=== PATIENT | female | born 1980 | race Caucasian/White ===

== ENCOUNTER 2017-12-19 09:33 | Emergency (ER) | payer BC ==
[2017-12-19] MEDS ORDERED: Acetaminophen/Codeine 30-300mg Tablet ONE (09:53)
[2017-12-19] MEDS ORDERED: predniSONE 20 MG TAB ONE (09:54)
== END 2017-12-19 10:10 | disposition home or self-care (01) ==
LOC: SCSER 09:33
DX: M54.42 Lumbago with sciatica, left side (principal)
CPT/HCPCS: 99283; J7506

== ENCOUNTER 2022-01-20 15:27 | Outpatient (CLI) | payer BC | END 2022-01-20 15:28 | disposition home or self-care (01) | LOC: BICMAMMO 15:27 | PROVIDERS: ATTEND Student in an Organized Health Care Education/Training Program | DX: Z12.31 Encounter for screening mammogram for malignant neoplasm of breast (principal) | CPT/HCPCS: 77063; 77067 ==